=== PATIENT | female | born 1955 | race African-American/Black ===

== ENCOUNTER 2019-04-08 10:07 | Emergency (ER) | payer MEDICAID ==
[~2019-04-08] VITALS: Ht 157.5 cm; Wt 46.0 kg
[2019-04-08] MEDS ORDERED: LEVOFLOXACIN 750MG PREMIX 150 ML IV ONE (10:30)
[2019-04-08] MEDS ORDERED: VANCOMYCIN 1 G PREMIX 200 ML IV ONE (10:30)
[2019-04-08] MEDS ORDERED: SODIUM CHLORIDE 0.9% 1000ML BAG (SEPSIS BOLUS) IV ONE (10:30)
[2019-04-08 11:41] LABS: INR 1.4; PARTIAL THROMBOPLASTIN TIME 37.8 sec (23.4-31.0); PROTHROMBIN TIME 14.1 sec (9.6-11.0)
[2019-04-08 11:45] LABS: BASOPHILS % 0.7 % (0.0-2.0); EOSINOPHILS % 2.6 % (0.0-5.0); HEMATOCRIT. 29.1 % (36.0-48.0); HEMOGLOBIN. 9.8 g/dL (12.0-16.0); LYMPHOCYTES % 30.3 % (20.0-50.0); MEAN CORPUSCULAR HEMOGLOBIN 29.5 pg (28.0-32.0); MEAN CORPUSCULAR VOLUME 87.8 fL (81.0-99.0); MEAN PLATELET VOLUME 8.2 fl (7.4-10.4); MONOCYTES % 8.9 % (2.0-8.0); NEUTROPHILS % 57.5 % (40.0-76.0); PLATELET 358 x1000/uL (130-400); RED BLOOD CELL COUNT 3.31 mill/uL (4.2-5.4); RED CELL DISTRIBUTION WIDTH 16.1 % (11.6-14.6)
[2019-04-08] MEDS ORDERED: ASPIRIN 81MG TABLET PO ONE (12:15)
[2019-04-08 13:20] LABS: CLARITY URINE CLEAR (CLEAR); COLOR URINE YELLOW (YELLOW); KETONES URINE TRACE (NEGATIVE); LEUKOCYTE ESTERASE URINE TRACE (NEGATIVE); NITRITE URINE NEGATIVE (NEGATIVE); OCCULT BLOOD URINE NEGATIVE (NEGATIVE); PROTEIN URINE NEGATIVE (NEGATIVE); SPECIFIC GRAVITY URINE 1.012 (1.005-1.030); UROBILINOGEN URINE 0.2 E.U./dL (0.2-1.0)
[2019-04-08 13:23] LABS: CHLORIDE 107 mEq/L (98-107)
[2019-04-08 13:45] VITALS: BP 91/47
[2019-04-12] MEDS ORDERED: Metoprolol (01:08)
[2019-04-12] MEDS ORDERED: AMLO2.5T45 PO (01:08)
[2019-04-12] MEDS ORDERED: ranitidine (01:08)
[2019-04-12] MEDS ORDERED: xarelto PO (01:08)
[2019-04-12] MEDS ORDERED: Digoxin (01:08)
[2019-04-12] MEDS ORDERED: Lipitor (01:08)
== END 2019-04-08 14:55 | disposition left against medical advice (07) ==
LOC: ER 10:07 → EDBEDREQ 14:07 → EDBEDREQTM 14:09 → ER 14:55 → CANBEDREQ 19:27
DX: R55 Syncope and collapse (principal); I95.9 Hypotension, unspecified; I10 Essential (primary) hypertension; J45.909 Unspecified asthma, uncomplicated; J44.9 Chronic obstructive pulmonary disease, unspecified; E11.9 Type 2 diabetes mellitus without complications; I48.91 Unspecified atrial fibrillation; Z79.01 Long term (current) use of anticoagulants; Z88.0 Allergy status to penicillin; Z88.2 Allergy status to sulfonamides; Z88.8 Allergy status to other drugs, medicaments and biological substances; Z93.0 Tracheostomy status
CPT/HCPCS: 36415; 71045; 80053; 81003; 83605; 83880; 84145; 84484; 85025; 85610; 85730; 87040; 93005; 96361; 96365; 96366; 96367; 99284; J1956; J3370; J7030; Z7610

== ENCOUNTER 2019-05-08 09:33 | Emergency (ER) | payer MEDICAID ==
[~2019-05-08] VITALS: Ht 170.2 cm; Wt 59.0 kg
[~2019-05-08 09:33] MED LIST: Lipitor; xarelto PO
[2019-05-08] MEDS ORDERED: SODIUM CHLORIDE 0.9% 1,000 ML IV ONE (09:47)
[2019-05-08 10:38] VITALS: BP 120/81
[2019-05-08] MEDS ORDERED: LIP40 PO (23:37)
[2019-05-08] MEDS ORDERED: HYDR-4009 PO (23:37)
[2019-05-08] MEDS ORDERED: RIVA20TA PO (23:37)
== END 2019-05-08 11:45 | disposition left against medical advice (07) ==
LOC: ER 09:33
DX: R55 Syncope and collapse (principal); I10 Essential (primary) hypertension; J44.9 Chronic obstructive pulmonary disease, unspecified; E11.9 Type 2 diabetes mellitus without complications; I48.91 Unspecified atrial fibrillation; Z88.8 Allergy status to other drugs, medicaments and biological substances; Z85.819 Personal history of malignant neoplasm of unspecified site of lip, oral cavity, and pharynx; Z92.21 Personal history of antineoplastic chemotherapy; Z93.0 Tracheostomy status; Z79.01 Long term (current) use of anticoagulants; Z88.0 Allergy status to penicillin; Z88.2 Allergy status to sulfonamides
CPT/HCPCS: 71045; 93005; 96360; 99283; J7030

== ENCOUNTER 2019-05-16 09:44 | Inpatient (IN) | payer MEDICAID ==
[~2019-05-16] VITALS: Ht 160 cm; Wt 51.7 kg
[~2019-05-16 09:44] MED LIST changes: +HYDR-4009 PO; +LIP40 PO; -Lipitor; +RIVA20TA PO; -xarelto PO
[2019-05-16] MEDS ORDERED: MORPHINE SULFATE 4 MG/ML CPJ (NOT FOR IM USE) IV STA (10:30)
[2019-05-16 11:20] LABS: BASOPHILS % 0.5 % (0.0-2.0); EOSINOPHILS % 0.5 % (0.0-5.0); HEMATOCRIT. 26.5 % (36.0-48.0); HEMOGLOBIN. 8.5 g/dL (12.0-16.0); LYMPHOCYTES % 18.8 % (20.0-50.0); MEAN CORPUSCULAR VOLUME 87.4 fL (81.0-99.0); MEAN PLATELET VOLUME 7.4 fl (7.4-10.4); NEUTROPHILS % 71.2 % (40.0-76.0); PLATELET 297 x1000/uL (130-400); RED BLOOD CELL COUNT 3.03 mill/uL (4.2-5.4); RED CELL DISTRIBUTION WIDTH 15.8 % (11.6-14.6)
[2019-05-16 11:26] LABS: CHLORIDE 106 mEq/L (98-107)
[2019-05-16] MEDS ORDERED: ONDANSETRON HCL 4MG/2ML INJ IV PRN (13:15)
[2019-05-16] MEDS ORDERED: CLONIDINE 0.1MG TABLET PO PRN (13:15)
[2019-05-16] MEDS ORDERED: ACETAMINOPHEN 325MG TABLET PO PRN (13:15)
[2019-05-16 14:45] VITALS: BP 118/52
[2019-05-16 15:50] LABS: PHOSPHORUS 3.2 mg/dL (2.5-4.9)
[2019-05-16 20:00] VITALS: BP 68/35
[2019-05-16 20:50] VITALS: BP 102/49
[2019-05-16] MEDS: ATORVASTATIN CALCIUM 40MG TABLET PO SCH (20:54)
[2019-05-16] MEDS: HYDROCODONE/ACETAMINOPHEN 5/325MG TABLET PO PRN (20:55)
[2019-05-16 22:40] VITALS: BP 112/55
[2019-05-17] VITALS (8 sets, daily range): BP systolic 103–185; BP diastolic 46–80
[2019-05-17] MEDS: HYDROCODONE/ACETAMINOPHEN 5/325MG TABLET PO PRN ×2 (06:21→21:52)
[2019-05-17 08:07] LABS: BASOPHILS % 0.9 % (0.0-2.0); HEMATOCRIT. 28.1 % (36.0-48.0); HEMOGLOBIN. 8.9 g/dL (12.0-16.0); LYMPHOCYTES % 32.7 % (20.0-50.0); MEAN CORPUSCULAR HEMOGLOBIN 27.7 pg (28.0-32.0); MEAN CORPUSCULAR VOLUME 87.2 fL (81.0-99.0); MEAN PLATELET VOLUME 8.3 fl (7.4-10.4); MONOCYTES % 10.5 % (2.0-8.0); NEUTROPHILS % 54.9 % (40.0-76.0); PLATELET 264 x1000/uL (130-400); RED BLOOD CELL COUNT 3.22 mill/uL (4.2-5.4); RED CELL DISTRIBUTION WIDTH 16.1 % (11.6-14.6)
[2019-05-17 08:25] LABS: CHLORIDE 106 mEq/L (98-107)
[2019-05-17] MEDS: IPRATROPIUM/ALBUTEROL 0.5-3(2.5)MG/3ML NEB HHN PRN (11:48)
[2019-05-17] MEDS ORDERED: MAGNESIUM 2 G PREMIX 50 ML IV NR (12:00)
[2019-05-17] MEDS: MAGNESIUM OXIDE 400MG TABLET PO SCH (12:48)
[2019-05-17] MEDS: ATORVASTATIN CALCIUM 40MG TABLET PO SCH (21:31)
[2019-05-18] VITALS: BP 115/65
[2019-05-18 04:00] VITALS: BP_SYST 115; BP_SYST 150; BP_SYST 91; BP_DIAS 62; BP_DIAS 74; BP_DIAS 89
[2019-05-18] MEDS: HYDROCODONE/ACETAMINOPHEN 5/325MG TABLET PO PRN ×2 (06:09→11:43)
[2019-05-18 07:24] LABS: BASOPHILS % 0.5 % (0.0-2.0); EOSINOPHILS % 1.8 % (0.0-5.0); HEMATOCRIT. 28.9 % (36.0-48.0); HEMOGLOBIN. 9.5 g/dL (12.0-16.0); LYMPHOCYTES % 27.8 % (20.0-50.0); MEAN CORPUSCULAR HEMOGLOBIN 28.1 pg (28.0-32.0); MEAN CORPUSCULAR VOLUME 85.3 fL (81.0-99.0); MEAN PLATELET VOLUME 7.9 fl (7.4-10.4); NEUTROPHILS % 60.9 % (40.0-76.0); PLATELET 293 x1000/uL (130-400); RED BLOOD CELL COUNT 3.39 mill/uL (4.2-5.4); RED CELL DISTRIBUTION WIDTH 15.9 % (11.6-14.6)
[2019-05-18 07:25] LABS: CHLORIDE 104 mEq/L (98-107)
[2019-05-18 08:30] VITALS: BP_SYST 118; BP_SYST 134; BP_SYST 84; BP_DIAS 54; BP_DIAS 78; BP_DIAS 82
[2019-05-18] MEDS: MAGNESIUM OXIDE 400MG TABLET PO SCH (08:33)
[2019-05-18] MEDS ORDERED: LORAZEPAM 2MG/ML CPJ IV PRN (09:45)
[2019-05-18] MEDS ORDERED: DEXAMETHASONE 4MG/ML 1ML VIAL IV SCH (10:00)
[2019-05-18] MEDS ORDERED: AMLODIPINE 5MG TABLET PO SCH (11:00)
[2019-05-18] MEDS ORDERED: ASPIRIN 81MG TABLET PO SCH (11:00)
[2019-05-18] MEDS ORDERED: DEXAMETHASONE 4MG/ML 1ML VIAL ONE (11:04)
[2019-05-18] MEDS: IPRATROPIUM/ALBUTEROL 0.5-3(2.5)MG/3ML NEB HHN PRN (11:59)
[2019-05-18 12:11] VITALS: BP 106/68
[2019-05-18] MEDS ORDERED: MED4 MT (14:51)
[2019-05-18] MEDS ORDERED: PANT40TA4 MT (14:51)
[2019-05-18] MEDS ORDERED: AMLO5TAB88 PO (14:51)
[2019-05-18 15:59] VITALS: BP 108/76
== END 2019-05-18 17:55 | disposition home or self-care (01) | DRG 48 ==
LOC: ER 10:09 → 6WST 13:04 → ENRESERV 13:15
PROVIDERS: ADMIT Internal Medicine; ATTEND Internal Medicine
DX: G90.8 Other disorders of autonomic nervous system (principal); J96.10 Chronic respiratory failure, unspecified whether with hypoxia or hypercapnia; I95.9 Hypotension, unspecified; Z93.0 Tracheostomy status; E83.42 Hypomagnesemia; I48.0 Paroxysmal atrial fibrillation; I11.9 Hypertensive heart disease without heart failure; Z99.81 Dependence on supplemental oxygen; D64.9 Anemia, unspecified; E78.5 Hyperlipidemia, unspecified; H91.10 Presbycusis, unspecified ear; J44.9 Chronic obstructive pulmonary disease, unspecified; Z60.2 Problems related to living alone; Z79.01 Long term (current) use of anticoagulants; Z79.899 Other long term (current) drug therapy; Z82.49 Family history of ischemic heart disease and other diseases of the circulatory system; Z85.21 Personal history of malignant neoplasm of larynx; Z85.819 Personal history of malignant neoplasm of unspecified site of lip, oral cavity, and pharynx; Z87.891 Personal history of nicotine dependence; Z88.1 Allergy status to other antibiotic agents; Z88.2 Allergy status to sulfonamides; Z88.8 Allergy status to other drugs, medicaments and biological substances
CPT/HCPCS: 36415; 70490; 71045; 80048; 83735; 83880; 84100; 84484; 93005; 93970; 94640; 99285; J1100; J2060; J2270; J3475; J7620